=== PATIENT | female | born 1990 | race American Indian/Alaskan Native ===

== ENCOUNTER 2019-03-23 23:00 | Emergency (ER) | payer SELFPAY ==
[2019-03-23 23:50] LABS: Basophils % (Auto) 0.4 % (0.0-1.8); Eosinophils # (Auto) 0.1 K/mm3 (0.0-0.4); Eosinophils % (Auto) 1.6 % (0.0-4.3); Hematocrit 37.8 % (30.3-42.9); Hemoglobin 12.8 gm/dl (10.1-14.3); Lymphocytes # (Auto) 2.3 K/mm3 (1.2-5.4); Lymphocytes % (Auto) 28.3 % (13.4-35.0); Mean Corpuscular HGB Conc 34 % (30-34); Mean Corpuscular Volume 91 fl (79-97); Monocytes # (Auto) 0.7 K/mm3 (0.0-0.8); Platelet Count 241 K/mm3 (140-440); Red Blood Count 4.16 M/mm3 (3.65-5.03)
[2019-03-24 00:09] LABS: Bilirubin,Urine NEG (Negative); Blood,Urine LG (Negative); Color,Urine Yellow (Yellow); Mucus,Urine FEW /HPF; Protein,Urine <15 mg/dL mg/dL (Negative); Urobilinogen,Urine < 2.0 mg/dL (<2.0)
[2019-03-24] MEDS ORDERED: TYLENOL PO ONE (02:14)
[2019-03-24] MEDS ORDERED: KEFLEX PO ONE (02:15)
--- NOTE | 2019-03-24 04:43 | Ultrasound Report ---
Pelvic ultrasound INDICATION: Positive test, vaginal bleeding, pain Transabdominal and endovaginal studies were performed. On endovaginal study uterus measures 8.8 cm in length. Endometrial stripe measures 8 mm. There is a m inimal collection of fluid in the endometrial canal in the fundus with associated minimal amount of m oderate echogenicity but I cannot definitively label this as a gestational sac. I cannot verify intra uterine . This could just represent a small amount of fluid and thrombus in the endometrial canal. Ovaries show no significant abnormalities. No free fluid is seen. No adnexal masses are noted. IMPRESSION: No intrauterine can be confirmed. I do not have strong evidence of ectopic preg razia but cannot exclude that process. Clinical correlation and follow-up are needed. Signer Name: Rocky Nolen MD Signed: 03/24/2019 4:39 AM Workstation Name: [id number]
--- NOTE | 2019-03-24 04:43 | Ultrasound Report ---
Pelvic ultrasound INDICATION: Positive test, vaginal bleeding, pain Transabdominal and endovaginal studies were performed. On endovaginal study uterus measures 8.8 cm in length. Endometrial stripe measures 8 mm. There is a m inimal collection of fluid in the endometrial canal in the fundus with associated minimal amount of m oderate echogenicity but I cannot definitively label this as a gestational sac. I cannot verify intra uterine . This could just represent a small amount of fluid and thrombus in the endometrial canal. Ovaries show no significant abnormalities. No free fluid is seen. No adnexal masses are noted. IMPRESSION: No intrauterine can be confirmed. I do not have strong evidence of ectopic preg rzaia but cannot exclude that process. Clinical correlation and follow-up are needed. Signer Name: Rocky Nolen MD Signed: 03/24/2019 4:39 AM Workstation Name: [id number]
--- NOTE | 2019-03-24 05:29 | Emergency Department Report ---
ED Female HPI - General Chief complaint: Vaginal Bleeding Stated complaint: AND BLEEDING Source: patient Mode of arrival: Ambulatory Limitations: No Limitations - History of Present Illness Initial comments: Patient is a A0 29 yo AA female who is approximately 7-8 weeks gestation who presents to the ED with c/o acute onset persistent pelvic pain and vaginal blee ding for the last 2 days. Patient states that the bleeding has been persistent and worsening in the last 12 hours. Patient denies dyspnea, nausea, vomiting, diarrhea, dizziness, dysuria, vaginal discharge, headache, lightheadedness, fever and chills. MD Complaint: vaginal bleeding, pelvic pain, other (approximately 8 weeks gestation) -: Sudden, days(s) (2) Location: suprapubic, other (vaginal) Radiation: non-radiating Severity: moderate Severity scale (0 -10): 5 Quality: cramping, sharp Consistency: constant Improves with: none Worsens with: none Are you Now?: Yes (7-8 weeks gestation) Last Menstrual Period: 02/07/19 EDC: 11/14/19 Associated Symptoms: denies other symptoms, vaginal bleeding, abdominal pain. denies: vaginal discharge, nausea/vomiting, fever/chills, headaches, dysuria, seizure, shortness of breath, syncope, weakness - Related Data Sexually active: Yes : 5 Para: 4 A: 0 Previous Rx's Medication Instructions Recorded Last Taken Type cephALEXin [Keflex] 500 mg PO Q8HR #30 cap 03/24/19 Unknown Rx Allergies Allergy/AdvReac Type Severity Reaction Status Date / Time No Known Allergies Allergy Verified 03/23/19 23:06 ED Review of Systems ROS: Stated complaint: AND BLEEDING Other details as noted in HPI Constitutional: denies: chills, fever Eyes: denies: eye pain, eye discharge, vision change ENT: denies: ear pain, throat pain Respiratory: denies: cough, shortness of breath, wheezing Cardiovascular: denies: chest pain, palpitations Endocrine: no symptoms reported Gastrointestinal: abdominal pain. denies: nausea, diarrhea Genitourinary: other (vaginal bleedin). denies: urgency, dysuria, discharge Musculoskeletal: denies: back pain, joint swelling, arthralgia Skin: denies: rash, lesions Neurological: denies: headache, weakness, paresthesias Psychiatric: denies: anxiety, depression Hematological/Lymphatic: denies: easy bleeding, easy bruising ED Past Medical Hx - Past Medical History Previous Medical History?: No - Surgical History Past Surgical History?: Yes Additional Surgical History: x4. eye - Social History Smoking Status: Never Smoker Substance Use Type: None - Medications Home Medications: Home Medications Medication Instructions Recorded Confirmed Last Taken Type cephALEXin [Keflex] 500 mg PO Q8HR #30 cap 03/24/19 Unknown Rx ED Physical Exam - General Limitations: No Limitations General appearance: alert, in no apparent distress - Head Head exam: Present: atraumatic, normocephalic, normal inspection - Eye Eye exam: Present: normal appearance, PERRL, EOMI. Absent: scleral icterus, co njunctival injection, periorbital swelling Pupils: Present: normal accommodation - ENT ENT exam: Present: normal exam, normal orophraynx, mucous membranes moist, TM's normal bilaterally, normal external ear exam - Neck Neck exam: Present: normal inspection, full ROM. Absent: tenderness, lymphade nopathy - Respiratory Respiratory exam: Present: normal lung sounds bilaterally. Absent: respiratory distress, wheezes, rales, rhonchi, chest wall tenderness, accessory muscle use, decreased breath sounds - Cardiovascular Cardiovascular Exam: Present: regular rate, normal rhythm, normal heart sounds. Absent: systolic murmur, diastolic murmur, rubs, gallop - GI/Abdominal GI/Abdominal exam: Present: soft, tenderness (suprapubic mildly), normal bowel sounds. Absent: hyperactive bowel sounds, hypoactive bowel sounds, organomegaly - Bi-manual exam: Present: other (Patient declined pelvic exam) - Extremities Exam Extremities exam: Present: normal inspection, full ROM, normal capillary refill - Back Exam Back exam: Present: normal inspection, full ROM. Absent: tenderness, CVA tenderness (R), CVA tenderness (L), muscle spasm, paraspinal tenderness - Neurological Exam Neurological exam: Present: alert, oriented X3, CN II-XII intact, normal gait, reflexes normal - Psychiatric Psychiatric exam: Present: normal affect, normal mood - Skin Skin exam: Present: warm, dry, intact, normal color. Absent: rash ED Course Vital Signs 03/23/19 03/23/19 23:12 23:22 Temperature 98.4 F 98.4 F Pulse Rate 94 H 94 H Respiratory 16 16 Rate Blood Pressure 119/74 O2 Sat by Pulse 98 98 Oximetry - Reevaluation(s) Reevaluation #1: 03/24/19 06:02 Patient is a 29 yo AA female who is A0 and is approximately 7-8 weeks gestation, and who presents to the ED with c/o acute onset persistent suprapubic and vaginal bleeding x 2 days. Patient is alert and oriented x 3 and is in no acute distress. Lab test results are non-actionable, except for acute urinary tract infection. Patient was treated for pain and also given oral Keflex for UTI. The transvaginal US shows endovaginal study that shows uterus that measures 8.8 cm in length. Endometrial stripe measures 8 mm. There is a minimal collection of fluid in the endometrial canal in the fundus with associated minimal amount of moderate echogenicity but I cannot definitively label this as a gestational sac. I cannot verify intrauterine . This could just represent a small amount of fluid and thrombus in the endometrial canal. On reevaluation, patient's pain is well-controlled with medications. The lab results and the imaging report and its implications was discussed with the patient who verbalizes understanding. Patient was advised to return to the ED or follow-up with her [facility] physician in 48 hours for repeat hCG Quant studies to confirm and a complete miscarriage or viable . Patient was discharged home with Keflex for UTI. Patient was advised to return to the ED immediately if symptoms get worse. ED Medical Decision Making - Lab Data Result diagrams: 03/23/19 23:15 - Radiology Data Radiology results: report reviewed, image reviewed Findings [facility] [address] [place] [address] Ultrasound Report Signed Patient: JIGNESH LEVI MR#: [id number] : 1990 Acct:[id number] Age/Sex: 29 / F ADM Date: 03/23/19 Loc: ED Attending Dr: Ordering Physician: KRIS BUTLER Date of Service: 03/24/19 Procedure(s): US OB transvaginal Accession Number(s): [id number] cc: KRIS BUTLER Pelvic ultrasound INDICATION: Positive test, vaginal bleeding, pain Transabdominal and endovaginal studies were performed. On endovaginal study uterus measures 8.8 cm in length. Endometrial stripe measures 8 mm. There is a minimal collection of fluid in the endometrial canal in the fundus with a ssociated minimal amount of moderate echogenicity but I cannot definitively label this as a gestational sac. I cannot verify intrauterine . This could just represent a small amount of fluid and thrombus in the endometrial canal. Ovaries show no significant abnormalities. No free fluid is seen. No adnexal masses are noted. IMPRESSION: No intrauterine can be confirmed. I do not have strong evidence of ectopic but cannot exclude that process. Clinical correlation and follow-up are needed. Signer Name: Rocky Nolen MD Signed: 03/24/2019 4:39 AM Workstation Name: [id number] Transcribed By: GJ Dictated By: Rocky Nolen MD Electronically Authenticated By: Rocky Nolen MD Signed Date/Time: 03/24/19 0439 - Medical Decision Making Patient is a 29 yo AA female who is A0 and is approximately 7-8 weeks gestation, and who presents to the ED with c/o acute onset persistent suprapubic and vaginal bleeding x 2 days. Patient is alert and oriented x 3 and is in no acute distress. Lab test results are non-actionable, except for acute urinary tract infection. Patient was treated for pain and also given oral Keflex for U TI. The transvaginal US shows endovaginal study that shows uterus that measures 8.8 cm in length. Endometrial stripe measures 8 mm. There is a minimal collection of fluid in the endometrial canal in the fundus with associated minimal amount of moderate echogenicity but I cannot definitively label this as a gestational sac. I cannot verify intrauterine . This could just represent a small amount of fluid and thrombus in the endometrial canal. On reevaluation, patient's pain is well-controlled with medications. The lab results and the imaging report and its implications was discussed with the patient who verbalizes understanding. Patient was advised to return to the ED or follow-up with her [facility] [facility] physician in 48 hours for repeat hCG Quant studies to confirm and a complete miscarriage or viable . Patient was discharged home with Keflex for UTI. Patient was advised to return to the ED immediately if symptoms get worse. - Differential Diagnosis Threatened miscarriage; Acute UTI; Abdominal pain; ectopic Critical care attestation.: If time is entered above; I have spent that time in minutes in the direct care of this critically ill patient, excluding procedure time. ED Disposition Clinical Impression: Threatened miscarriage, Acute urinary tract infection, Vaginal bleeding in Abdominal pain in Qualifiers: Trimester: unspecified trimester Qualified Code(s): O26.899 - Other specified related conditions, unspecified trimester Disposition: TO HOME OR SELFCARE Is pt being admited?: No Does the pt Need Aspirin: No Condition: Stable Instructions: Threatened Miscarriage (ED), Urinary Tract Infection in Women (ED), Abdominal Pain in (ED) Additional Instructions: Maintain a complete pelvic rest, take medication with food, drink plenty of fluids and follow up with your [employer] [facility] physician in 48 hours or return to the ED for repeat hCG Quant confined the viability of the . Prescriptions: cephALEXin [Keflex] 500 mg PO Q8HR #30 cap Referrals: PRIMARY CARE, [Primary Care Provider] - 3-5 Days Time of Disposition: 05:23 Print Language: PARAGUAYAN
[2019-03-24 06:13] VITALS: BP 110/78
== END 2019-03-24 06:13 | disposition home or self-care (01) ==
LOC: ED 23:00
DX: O20.0 Threatened abortion (principal); O23.41 Unspecified infection of urinary tract in pregnancy, first trimester; Z3A.01 Less than 8 weeks gestation of pregnancy; Z98.890 Other specified postprocedural states; Z79.899 Other long term (current) drug therapy
CPT/HCPCS: 36415; 76801; 76817; 81001; 84702; 85025; 86900; 86901; 87086; 99284